=== PATIENT | male | born 1940 | race Two or more races ===

== ENCOUNTER 2018-02-12 10:55 | Inpatient (IN) | payer MEDICARE, OTHER ==
[~2018-02-12] VITALS: Ht 170.2 cm; Wt 78.5 kg
[2018-02-12] MEDS ORDERED: ASPIRIN 325 MG TABLET PO ONE (11:30)
[2018-02-12] MEDS ORDERED: NITROGLYCERIN PACKET 1 GM PACKET TD ONE (11:30)
[2018-02-12] MEDS ORDERED: NITROGLYCERIN PACKET 1 GM PACKET ONE (11:37)
[2018-02-12] MEDS ORDERED: ASPIRIN 325 MG TABLET ONE (11:37)
[2018-02-12 11:39] LABS: BASOPHILS % (AUTO) 0.6 % (0.0-2.0); EOSINOPHILS % (AUTO) 0.8 % (0.0-6.0); HEMATOCRIT 44 % (39-51); HEMOGLOBIN 15.4 g/dL (13.5-17.5); LYMPHOCYTES # (AUTO) 1.4 /CMM (0.8-4.8); LYMPHOCYTES % (AUTO) 23.1 % (20.0-44.0); MEAN CORPUSCULAR HEMOGLOBIN 33 PG (26.0-33.0); MEAN CORPUSCULAR HGB CONC 35 g/dl (31.0-36.0); MEAN CORPUSCULAR VOLUME 93 fL (80-96); MONOCYTES # (AUTO) 0.4 /CMM (0.1-1.30); MONOCYTES % (AUTO) 6.1 % (2.0-12.0); NEUTROPHILS # (AUTO) 4.1 /CMM (1.8-8.9); NEUTROPHILS % (AUTO) 69.4 % (43.0-81.0); PLATELET COUNT (AUTO) 103 /CMM (150-450); RDW COEFFICIENT OF VARIATION 12.8 (11.5-15.0); RED BLOOD CELL COUNT(AUTO) 4.74 MIL/uL (4.5-6.0); WHITE BLOOD COUNT (AUTO) 5.9 K/uL (4.3-11.0)
[2018-02-12 11:57] LABS: CARBON DIOXIDE 27 mmol/L (21-32); CHLORIDE 104 mmol/L (98-107); CREATININE 0.8 mg/dL (0.6-1.3); GLUCOSE 138 mg/dL (74-106); POTASSIUM 4.3 mmol/L (3.5-5.1); SODIUM SERUM 139 mmol/L (136-145); UREA NITROGEN, BLOOD 14 mg/dL (7-18)
[2018-02-12 12:00] LABS: D-DIMER 0.66 mg/L(FEU (0.17-0.50); INR 0.96 (0.87-1.13); TROPONIN I < 0.017 ng/mL (0.00-0.056)
[2018-02-12 12:08] LABS: B-TYPE NATRIURETIC PEPTIDE 30 PG/ML (0-125); CALCIUM, SERUM 9.5 mg/dL (8.5-10.1)
[2018-02-12] MEDS ORDERED: CANA100T PO (13:07)
[2018-02-12] MEDS ORDERED: GABA-532 PO (13:07)
[2018-02-12] MEDS ORDERED: ATEN25TA PO (13:07)
[2018-02-12] MEDS ORDERED: HYDR-548 PO (13:07)
[2018-02-12] MEDS ORDERED: BESI5DRO EACHEYE (13:07)
[2018-02-12] MEDS ORDERED: TRAZ-147 PO (13:07)
[2018-02-12] MEDS ORDERED: DIFL5DRO OP (13:07)
[2018-02-12] MEDS ORDERED: TAMS0.4C34 PO (13:07)
[2018-02-12] MEDS ORDERED: SIMV20TA6 PO (13:07)
[2018-02-12] MEDS ORDERED: LOSA50TA21 PO (13:07)
[2018-02-12] MEDS ORDERED: BROM3DRO EACHEYE (13:07)
[2018-02-12] MEDS ORDERED: SITA1TAB2 PO (13:07)
[2018-02-12] MEDS ORDERED: IOHEXOL-350 100 ML VIAL IV ONE (13:42)
[2018-02-12] MEDS ORDERED: IV NS 0.9% 250 ML IV ONE (13:42)
[2018-02-12] MEDS ORDERED: CT SWABBABLE VALVE TRANS SET 1 EA INFUS.SET MC ONE (13:42)
[2018-02-12] MEDS ORDERED: ENOXAPARIN SODIUM 40 MG/0.4 ML DISP.SYRIN SQ SCH (14:30)
[2018-02-12] MEDS ORDERED: MAG HYDROX/AL HYDROX/SIMETH 30 ML UDC PO PRN (14:30)
[2018-02-12] MEDS ORDERED: ACETAMINOPHEN 325 MG TABLET PO PRN (14:30)
[2018-02-12] MEDS ORDERED: ONDANSETRON HCL/PF 4 MG/2 ML VIAL IVP PRN (14:30)
[2018-02-12] MEDS ORDERED: Z GUARD REMEDY 2 OZ OINT TP PRN (14:30)
[2018-02-12] MEDS ORDERED: MAGNESIUM HYDROXIDE 30 ML UDC PO PRN (14:30)
[2018-02-12 16:00] VITALS: BP 128/70
[2018-02-12] MEDS ORDERED: methylPREDNISolone ACETATE 80 MG/ML VIAL IJ STA (16:02)
[2018-02-12] MEDS ORDERED: LIDOCAINE 1% INJ 50 ML MDV IJ STA (16:02)
[2018-02-12] MEDS ORDERED: DEXAMETHASONE SOD PHOSPHATE 10 MG/ML VIAL IV STA (16:02)
[2018-02-12 16:20] VITALS: BP 128/70
[2018-02-12 20:00] VITALS: BP 124/69
[2018-02-12] MEDS: HYDROCODONE/APAP 5/325MG 1 EACH TABLET PO PRN (20:22)
[2018-02-12] MEDS ORDERED: GABAPENTIN 100 MG CAPSULE PO SCH (22:00)
[2018-02-12] MEDS ORDERED: TRAZODONE 50 MG TABLET PO SCH (22:00)
[2018-02-12] MEDS ORDERED: SIMVASTATIN 20 MG TABLET PO SCH (22:00)
[2018-02-12] MEDS ORDERED: ZOLPIDEM TARTRATE 5 MG TABLET PO PRN (22:00)
[2018-02-13] VITALS: BP 136/64
[2018-02-13 04:00] VITALS: BP 132/68
[2018-02-13 06:20] LABS: BASOPHILS % (AUTO) 0.4 % (0.0-2.0); EOSINOPHILS # (AUTO) 0.1 /CMM (0.0-0.7); EOSINOPHILS % (AUTO) 1.9 % (0.0-6.0); HEMATOCRIT 41 % (39-51); HEMOGLOBIN 14.3 g/dL (13.5-17.5); LYMPHOCYTES % (AUTO) 37.4 % (20.0-44.0); MEAN CORPUSCULAR HEMOGLOBIN 33 PG (26.0-33.0); MEAN CORPUSCULAR HGB CONC 35 g/dl (31.0-36.0); MEAN CORPUSCULAR VOLUME 94 fL (80-96); MONOCYTES # (AUTO) 0.4 /CMM (0.1-1.30); MONOCYTES % (AUTO) 7.4 % (2.0-12.0); NEUTROPHILS # (AUTO) 2.8 /CMM (1.8-8.9); NEUTROPHILS % (AUTO) 52.9 % (43.0-81.0); PLATELET COUNT (AUTO) 104 /CMM (150-450); RDW COEFFICIENT OF VARIATION 13.7 (11.5-15.0); RED BLOOD CELL COUNT(AUTO) 4.37 MIL/uL (4.5-6.0); WHITE BLOOD COUNT (AUTO) 5.3 K/uL (4.3-11.0)
[2018-02-13 06:34] LABS: CALCIUM, SERUM 8.5 mg/dL (8.5-10.1); CARBON DIOXIDE 27 mmol/L (21-32); CHLORIDE 106 mmol/L (98-107); CREATININE 0.8 mg/dL (0.6-1.3); GLUCOSE 118 mg/dL (74-106); MAGNESIUM 2.2 mg/dL (1.8-2.4); PHOSPHORUS 3.6 mg/dL (2.5-4.9); POTASSIUM 4.3 mmol/L (3.5-5.1); SODIUM SERUM 138 mmol/L (136-145); UREA NITROGEN, BLOOD 13 mg/dL (7-18)
[2018-02-13 06:37] LABS: CHOLESTEROL 142 mg/dL (<200); HDL CHOLESTEROL 46 mg/dL (40-60); LDL 72 mg/dL (0-99); TRIGLYCERIDES 196 mg/dL (30-150)
[2018-02-13 08:00] VITALS: BP 118/61
[2018-02-13] MEDS ORDERED: REGADENOSON 0.4 MG/5 ML DISP.SYRIN IVP ONE (08:00)
[2018-02-13 08:11] VITALS: BP 118/61
[2018-02-13] MEDS ORDERED: LOSARTAN POTASSIUM 50 MG TABLET PO SCH (09:00)
[2018-02-13] MEDS ORDERED: TAMSULOSIN 0.4 MG CAP.SR.24H PO SCH (09:00)
[2018-02-13] MEDS ORDERED: ASPIRIN 325 MG TABLET PO SCH (09:00)
[2018-02-13] MEDS ORDERED: ATENOLOL 25 MG TABLET PO SCH (09:00)
[2018-02-13] MEDS: HYDROCODONE/APAP 5/325MG 1 EACH TABLET PO PRN (12:13)
== END 2018-02-13 14:15 | disposition home or self-care (01) | DRG 554 ==
LOC: ER 10:56 → TELE 13:23 → MED 02-13 09:12
PROVIDERS: ADMIT Internal Medicine; ATTEND Internal Medicine
PROC: 3E0U3BZ Introduction of Anesthetic Agent into Joints, Percutaneous Approach (ICD-10-PCS; principal; 2018-02-12)
DX: M19.011 Primary osteoarthritis, right shoulder (principal); D69.6 Thrombocytopenia, unspecified; E11.9 Type 2 diabetes mellitus without complications; E78.5 Hyperlipidemia, unspecified; I10 Essential (primary) hypertension; Z79.84 Long term (current) use of oral hypoglycemic drugs; Z79.899 Other long term (current) drug therapy; N40.0 Benign prostatic hyperplasia without lower urinary tract symptoms
CPT/HCPCS: 36415; 71045-TC; 73030-TC; 80048-TC; 80061-TC; 82550-TC; 83735-TC; 83880; 84100-TC; 84484-TC; 85025-TC; 85378-TC; 85730-TC; 87081-TC; 93307-TC; A4606; A9502; J1040; J1650; J2785; J3490; J7050; Q9967; Z7610